=== PATIENT | female | born 1995 | race Caucasian/White ===

== ENCOUNTER 2019-03-20 17:36 | Outpatient (CLI) | payer MEDICAID ==
[2019-03-20 20:15] LABS: ADD UMIC NO; UR ASCORBIC ACID NEGATIVE (NEGATIVE); UR BACTERIA FEW /HPF (NONE SEEN); UR BILIRUBIN (Dip) NEGATIVE (NEGATIVE); UR BLOOD (Dip) NEGATIVE (NEGATIVE); UR CLARITY SLIGHTLY CLOUDY (CLEAR); UR COLOR YELLOW (YELLOW); UR GLUCOSE (Dip) NEGATIVE (NEGATIVE); UR KETONES (Dip) NEGATIVE (NEGATIVE); UR LEUKOCYTE ESTERASE (Dip) NEGATIVE Leu/ul (NEGATIVE); UR MUCUS FEW /HPF (NONE SEEN); UR NITRITE (Dip) NEGATIVE (NEGATIVE); UR RBC 1 /HPF (0-5); UR SPECIFIC GRAVITY (Dip) 1.018 (1.003-1.030); UR SQUAMOUS EPITHELIAL CELL FEW /HPF (FEW); UR TOTAL PROTEIN (Dip) NEGATIVE (NEGATIVE); UR UROBILINOGEN (Dip) NEGATIVE (NEGATIVE); UR WBC 3 /HPF (0-5)
== END 2019-03-20 22:18 | disposition home or self-care (01) ==
LOC: OBT 17:36 → L-D 17:37 → OBT 22:18
DX: O47.1 False labor at or after 37 completed weeks of gestation (principal); Z3A.38 38 weeks gestation of pregnancy
CPT/HCPCS: 76818; 81001; 81003

== ENCOUNTER 2019-03-30 02:54 | Inpatient (IN) | payer MEDICAID ==
[2019-03-30] MEDS ORDERED: METHYLERGONOVINE 0.2 MG INJ IM (08:30)
[2019-03-30] MEDS ORDERED: BUTORPHANOL 2 MG INJ IV (08:30)
[2019-03-30] MEDS ORDERED: MISOPROSTOL 200 MCG TAB PR (08:30)
[2019-03-30] MEDS ORDERED: AMPICILLIN 2 GM/NS (PMX) 100 ML IV (08:30)
[2019-03-30] MEDS ORDERED: OXYTOCIN 30 UNITS/LR 500 ML IV (08:30)
[2019-03-30] MEDS ORDERED: CARBOPROST 250 MCG INJ IM (08:30)
[2019-03-30 08:41] LABS: ADD MAN DIFF? NO
[2019-03-30 08:43] LABS: BASOPHILS % 0.3 % (0.0-2.0); EOSINOPHILS % 0.1 % (0.0-7.0); HEMATOCRIT 33.7 % (37.0-47.0); HEMOGLOBIN 10.7 g/dl (12.0-16.0); LYMPHOCYTES # 1.9 10^3/ul (0.8-2.9); LYMPHOCYTES % 12.9 % (15.0-51.0); MEAN CORPUSCULAR HGB CONC 31.8 g/dl (32.0-37.0); MEAN PLATELET VOLUME 10.1 fl (7.4-10.4); MONOCYTE # 0.7 10^3/ul (0.3-0.9); MONOCYTES % 4.5 % (0.0-11.0); NEUTROPHIL # 11.8 10^3/ul (1.6-7.5); NEUTROPHILS % 81.4 % (39.0-77.0); PLATELET COUNT 190 10^3/UL (140-415); RED BLOOD COUNT 4.11 10^6/ul (4.20-5.40); RED CELL DISTRIBUTION WIDTH 12.9 % (11.5-14.5)
[2019-03-30 08:43] LABS: WHITE BLOOD COUNT 14.5 10^3/ul (4.8-10.8)
[2019-03-30] MEDS: LACTATED RINGER'S 1,000 ML IV ×4 (08:53→22:00)
[2019-03-30 09:03] LABS: INR 0.95; PROTIME 12.8 Sec (11.9-14.9)
[2019-03-30 09:04] LABS: PARTIAL THROMBOPLASTIN TIME 25.7 Sec (23.0-35.0)
[2019-03-30 09:37] LABS: HEPATITIS B SURFACE ANTIGEN NEGATIVE (NEGATIVE)
[2019-03-30] MEDS ORDERED: FENTAnyl 2MCG/ML-ROPIV 0.2% 100 ML (10:40)
[2019-03-30] MEDS ORDERED: NALOXONE (0.4 MG/ML) INJ IV (11:00)
[2019-03-30] MEDS: OXYTOCIN 30 UNITS/LR 500 ML IV ×2 (11:11→23:46)
[2019-03-30] MEDS ORDERED: AMPICILLIN 1 GM/NS (PMX) 50 ML IV (12:30)
[2019-03-30 15:09] LABS: RAPID PLASMA REAGIN NONREACTIVE (NR)
[2019-03-30] MEDS: FENTAnyl 2MCG/ML-ROPIV 0.2% 100 ML BAG EPI (17:23)
[2019-03-30] MEDS: AMPICILLIN 2 GM/NS (PMX) 100 ML IV (20:40)
[2019-03-30] MEDS: ONDANSETRON 4 MG INJ IV (22:00)
[2019-03-30] MEDS: LIDOCAINE 1% (MPF) 30 ML INJ INJ (23:48)
[2019-03-31] MEDS ORDERED: OXYCODONE/ASPIRIN (4.88/325) TAB PO ×2 (00:30)
[2019-03-31] MEDS ORDERED: MISOPROSTOL 200 MCG TAB PR (00:30)
[2019-03-31] MEDS ORDERED: ONDANSETRON 4 MG INJ IV (00:30)
[2019-03-31] MEDS ORDERED: OXYTOCIN 30 UNITS/LR 500 ML IV (00:30)
[2019-03-31] MEDS ORDERED: NACL 0.9% 3 ML SYG IV (00:30)
[2019-03-31] MEDS ORDERED: CARBOPROST 250 MCG INJ IM (00:30)
[2019-03-31] MEDS ORDERED: METHYLERGONOVINE 0.2 MG INJ IM (00:30)
[2019-03-31] MEDS ORDERED: DIPHENHYDRAMINE 25 MG CAP PO (00:30)
[2019-03-31] MEDS ORDERED: AMPICILLIN 1 GM/NS (PMX) 50 ML IV (00:30)
[2019-03-31] MEDS: IBUPROFEN 600 MG TAB PO ×5 (01:12→23:53)
[2019-03-31] MEDS: OXYTOCIN 30 UNITS/LR 500 ML IV ×3 (01:30→04:15)
[2019-03-31] MEDS: BENZOCAINE 20% 56 ML SPRAY TOP (04:36)
[2019-03-31] MEDS: WITCH HAZEL/GLYCERIN PAD PR (04:36)
[2019-03-31] MEDS: SENNA/DOCUSATE NA (8.6MG/50MG) TAB PO ×2 (09:15→21:25)
[2019-03-31] MEDS: LANOLIN HPA 1 PKT TOP (21:25)
[2019-04-01] MEDS: IBUPROFEN 600 MG TAB PO ×2 (06:37→12:25)
[2019-04-01 07:15] LABS: ADD MAN DIFF? NO
[2019-04-01 07:21] LABS: WHITE BLOOD COUNT 12.1 10^3/ul (4.8-10.8)
[2019-04-01 07:21] LABS: ABNORMAL IP MESSAGE 1; BASOPHIL # 0.1 10^3/ul (0.0-0.1); BASOPHILS % 0.4 % (0.0-2.0); EOSINOPHILS # 0.1 10^3/ul (0.0-0.5); HEMATOCRIT 21.6 % (37.0-47.0); LYMPHOCYTES # 2.1 10^3/ul (0.8-2.9); LYMPHOCYTES % 17.4 % (15.0-51.0); MEAN CORPUSCULAR HEMOGLOBIN 26.2 pg (29.0-33.0); MEAN CORPUSCULAR VOLUME 84.4 fl (82.0-101.0); MEAN PLATELET VOLUME 9.7 fl (7.4-10.4); MONOCYTE # 0.6 10^3/ul (0.3-0.9); MONOCYTES % 4.6 % (0.0-11.0); NEUTROPHIL # 9.1 10^3/ul (1.6-7.5); NEUTROPHILS % 75.6 % (39.0-77.0); PLATELET COUNT 144 10^3/UL (140-415); RED BLOOD COUNT 2.56 10^6/ul (4.20-5.40); RED CELL DISTRIBUTION WIDTH 13.3 % (11.5-14.5)
[2019-04-01 07:29] LABS: HEMOGLOBIN 6.7 g/dl (12.0-16.0); POSITIVE DIFF @See below
[2019-04-01 08:55] LABS: BAND NEUTROPHILS #M 0.3 10^3/ul (0.0-0.6); BAND NEUTROPHILS % (M) 3 % (0-4); BURR CELLS 1+ (0-0); EOSINOPHILS % (M) 1 % (0-7); GIANT THROMBO% (M) 1 % (0-0); LYMPHOCYTES #M 2.5 10^3/ul (0.8-2.9); LYMPHOCYTES % (M) 21 % (15-51); MONOCYTE #M 0.3 10^3/ul (0.3-0.9); MONOCYTES % (M) 3 % (0-11); OVALOCYTES 1+ (0-0); PLATELET ESTIMATE NORMAL; POIKILOCYTOSIS 1+ (0-0); SEG NEUT #M 8.7 10^3/ul (1.6-7.5); SEGMENTED NEUTROPHILS (M) % 72 % (39-77); SMUDGE%M 5 % (0-0)
[2019-04-01] MEDS: LANOLIN HPA 1 PKT TOP (09:41)
[2019-04-01] MEDS: SENNA/DOCUSATE NA (8.6MG/50MG) TAB PO (09:41)
[2019-04-01 12:04] LABS: ADD MAN DIFF? NO
[2019-04-01 12:09] LABS: ABNORMAL IP MESSAGE 1; BASOPHILS % 0.2 % (0.0-2.0); EOSINOPHILS # 0.1 10^3/ul (0.0-0.5); HEMATOCRIT 20.5 % (37.0-47.0); LYMPHOCYTES # 1.8 10^3/ul (0.8-2.9); LYMPHOCYTES % 14.4 % (15.0-51.0); MEAN CORPUSCULAR HEMOGLOBIN 26.1 pg (29.0-33.0); MEAN CORPUSCULAR HGB CONC 31.2 g/dl (32.0-37.0); MEAN CORPUSCULAR VOLUME 83.7 fl (82.0-101.0); MEAN PLATELET VOLUME 9.8 fl (7.4-10.4); MONOCYTE # 0.5 10^3/ul (0.3-0.9); MONOCYTES % 4.2 % (0.0-11.0); NEUTROPHIL # 9.8 10^3/ul (1.6-7.5); NEUTROPHILS % 79.3 % (39.0-77.0); PLATELET COUNT 143 10^3/UL (140-415); RED BLOOD COUNT 2.45 10^6/ul (4.20-5.40); RED CELL DISTRIBUTION WIDTH 13.4 % (11.5-14.5)
[2019-04-01 12:09] LABS: WHITE BLOOD COUNT 12.4 10^3/ul (4.8-10.8)
[2019-04-01 12:15] LABS: HEMOGLOBIN 6.4 g/dl (12.0-16.0); POSITIVE DIFF @See below
== END 2019-04-01 16:25 | disposition home or self-care (01) | DRG 807 ==
LOC: OBT 02:54 → PP1 03-31 01:27 → L-D 02:56 → OBT 07:59 → L-D 07:59
PROVIDERS: Obstetrics & Gynecology
PROC: 10E0XZZ Delivery of Products of Conception, External Approach (ICD-10-PCS; principal; 2019-03-31)
PROC: 0W8NXZZ Division of Female Perineum, External Approach (ICD-10-PCS; 2019-03-31)
DX: O80 Encounter for full-term uncomplicated delivery (principal); Z37.0 Single live birth; Z3A.39 39 weeks gestation of pregnancy
CPT/HCPCS: 62322; 76815; 76818; 85025; 85610; 85730; 86592; 86850; 86900; 86901; 87340